=== PATIENT | female | born 1990 | race Two or more races ===

== ENCOUNTER 2023-01-27 16:40 | Emergency (ER) | payer OTHER ==
[~2023-01-27] VITALS: Ht 167.6 cm; Wt 104.3 kg
== END 2023-01-27 20:27 | disposition home or self-care (01) ==
LOC: ER 16:40
DX: S80.871A Other superficial bite, right lower leg, initial encounter (principal); W54.0XXA Bitten by dog, initial encounter; Y93.9 Activity, unspecified; Y92.89 Other specified places as the place of occurrence of the external cause; Y99.9 Unspecified external cause status
CPT/HCPCS: 90471; 90714; J1670

== ENCOUNTER 2023-02-03 12:25 | Emergency (ER) | payer OTHER ==
[~2023-02-03] VITALS: Ht 172.7 cm; Wt 86.2 kg
== END 2023-02-03 13:15 | disposition home or self-care (01) ==
LOC: ER 12:25
DX: Z48.02 Encounter for removal of sutures (principal)

== ENCOUNTER 2023-07-17 14:16 | Emergency (ER) | payer OTHER ==
[~2023-07-17] VITALS: Ht 170.2 cm; Wt 93.0 kg
[2023-07-17 18:34] LABS: HEMATOCRIT 33.2 % (36.0-45.00); MEAN CELL VOLUME 86.3 fL (80.00-100.00); MEAN CORPUSCULAR HEMOGLOBIN 28.6 pg (27.00-32.0); MEAN CORPUSCULAR HGB CONC 33.1 g/dl (32.0-36.0); PLATELET COUNT 308 K/uL (150-450); RED BLOOD COUNT 3.85 M/uL (4.00-6.00); RED CELL DISTRIBUTION WIDTH 12.7 % (11.5-14.5)
[2023-07-17 19:03] LABS: ALBUMIN 2.6 gm/dL (3.4-5.0); BILIRUBIN TOTAL 0.32 mg/dL (0.3-1.2); CREATININE SERUM 0.46 mg/dL (0.55-1.02); GFR 158.44; GLOBULINA 4.8 G/DL (2.4-3.5); POTASSIUM 4.27 mEq/L (3.5-5.1); TOTAL PROTEIN 7.4 gm/dL (6.4-8.2)
[2023-07-17 19:06] LABS: PH,URINE 6.5 (5.0-8.0); URINE APPEARANCE Clear; URINE BILIRRUBIN Negative (NEGATIVE); URINE BLOOD Negative; URINE COLOR Yellow; URINE EPITHELIAL CELLS 22.2 uL (0.0-38.8); URINE GLUCOSE Negative (NEGATIVE); URINE LEUKOCYTE Small; URINE NITRATE Negative; URINE PROTEIN Trace (NEGATIVE); URINE RBC 5.7 uL (0.0-20.8); URINE WBC 72.6 uL (0.0-23.2)
== END 2023-07-17 21:43 | disposition home or self-care (01) ==
LOC: ER 14:16
PROVIDERS: General Practice
DX: O09.90 Supervision of high risk pregnancy, unspecified, unspecified trimester (principal); O23.42 Unspecified infection of urinary tract in pregnancy, second trimester; N39.0 Urinary tract infection, site not specified; Z3A.24 24 weeks gestation of pregnancy; Z20.822 Contact with and (suspected) exposure to COVID-19

== ENCOUNTER 2023-09-23 14:39 | Outpatient (CLI) | payer OTHER ==
[2023-09-23 15:58] LABS: HEMATOCRIT 30.9 % (36.0-45.00); HEMOGLOBIN 10.3 g/dL (12.0-15.00); MEAN CELL VOLUME 84.5 fL (80.00-100.00); MEAN CORPUSCULAR HEMOGLOBIN 28.1 pg (27.00-32.0); MEAN CORPUSCULAR HGB CONC 33.2 g/dl (32.0-36.0); PLATELET COUNT 256 K/uL (150-450); RED BLOOD COUNT 3.65 M/uL (4.00-6.00)
[2023-09-23 16:30] LABS: ALBUMIN 2.4 gm/dL (3.4-5.0); BILIRUBIN TOTAL 0.19 mg/dL (0.3-1.2); CALCIUM 8.5 mg/dL (8.5-10.1); CREATININE SERUM 0.5 mg/dL (0.55-1.02); GFR 143.9; GLOBULINA 3.5 G/DL (2.4-3.5); POTASSIUM 4.35 mEq/L (3.5-5.1); TOTAL PROTEIN 5.9 gm/dL (6.4-8.2)
[2023-09-23 19:53] LABS: RH POSITIVE
[2023-09-24 15:38] LABS: RAPID PLASMA REAGIN NONREACTIVE BY RPR (NONREACTIVE)
== END 2023-09-23 21:56 | disposition left against medical advice (07) ==
LOC: OBS/DEL 14:39
PROVIDERS: Obstetrics & Gynecology; ATTEND Obstetrics & Gynecology
DX: O26.893 Other specified pregnancy related conditions, third trimester (principal); Z3A.34 34 weeks gestation of pregnancy; O35.00X0 Maternal care for (suspected) central nervous system malformation or damage in fetus, unspecified, not applicable or unspecified; O35.3XX0 Maternal care for (suspected) damage to fetus from viral disease in mother, not applicable or unspecified; O36.8199 Decreased fetal movements, unspecified trimester, other fetus

== ENCOUNTER 2023-10-31 12:32 | Inpatient (IN) | payer OTHER ==
[~2023-10-31] VITALS: Ht 170.2 cm; Wt 3.2 kg
[2023-10-31] MEDS ORDERED: AMPICILLIN SODIUM 2,000 MG VIAL ONE (12:42)
[2023-10-31 13:13] LABS: HEMATOCRIT 34.4 % (36.0-45.00); HEMOGLOBIN 11.2 g/dL (12.0-15.00); MEAN CELL VOLUME 81.1 fL (80.00-100.00); MEAN CORPUSCULAR HEMOGLOBIN 26.5 pg (27.00-32.0); MEAN CORPUSCULAR HGB CONC 32.6 g/dl (32.0-36.0); PLATELET COUNT 294 K/uL (150-450); RED BLOOD COUNT 4.24 M/uL (4.00-6.00); RED CELL DISTRIBUTION WIDTH 13.6 % (11.5-14.5)
[2023-10-31] MEDS ORDERED: MAGNESIUM200 MG PO (13:21)
[2023-10-31 13:30] LABS: URINE APPEARANCE Clear; URINE BILIRRUBIN Negative (NEGATIVE); URINE BLOOD Negative; URINE COLOR Yellow; URINE GLUCOSE Negative (NEGATIVE); URINE LEUKOCYTE Trace; URINE NITRATE Negative; URINE PROTEIN 30 (NEGATIVE)
[2023-10-31] MEDS ORDERED: AMPICILLIN SODIUM 2,000 MG VIAL IV ONE (13:30)
[2023-10-31] MEDS ORDERED: RINGERS SOLUTION,LACTATED 1,000 ML IV SCH (13:30)
[2023-10-31 13:34] LABS: URINE BACTERIA 3911.7 uL (0.0-1933); URINE EPITHELIAL CELLS 66.1 uL (0.0-38.8); URINE RBC 13.5 uL (0.0-20.8)
[2023-10-31 13:39] LABS: INR < 0.93; PROTHROMBIN TIME 9.5 SECONDS (9.0-11.5)
[2023-10-31 13:40] LABS: PARTIAL THROMBOPLASTIN TIME 27.5 SECONDS (22.0-34.0)
[2023-10-31 13:45] LABS: ALBUMIN 2.9 gm/dL (3.4-5.0); BILIRUBIN TOTAL 0.31 mg/dL (0.3-1.2); CALCIUM 9.4 mg/dL (8.5-10.1); CREATININE SERUM 0.63 mg/dL (0.55-1.02); GFR 110.22; GLOBULINA 4.3 G/DL (2.4-3.5); POTASSIUM 4.47 mEq/L (3.5-5.1); TOTAL PROTEIN 7.2 gm/dL (6.4-8.2)
[2023-10-31 14:15] LABS: ABG PH 7.327 (7.35-7.45); ABG pCO2 47.6 mmHg (35-45)
[2023-10-31 14:16] LABS: ABG PO2 30.7 mmHg (80-100); BASE EXCESS -2.1 mmol/l; BICARBONATE 24.3 mmol/l (23-25); SaO2 52.5 %; Tco2 25.8 mmol/l; o2 21 %
[2023-10-31] MEDS ORDERED: MEPERIDINE HCL/PF 50 MG/ML VIAL IM PRN (14:30)
[2023-10-31] MEDS ORDERED: OXYTOCIN 1,000 ML IV SCH (14:30)
[2023-10-31] MEDS ORDERED: PROMETHAZINE HCL 50 MG/ML AMPUL IM PRN (14:30)
[2023-10-31] MEDS ORDERED: CEFAZOLIN SODIUM 1,000 MG VIAL ONE (14:38)
[2023-10-31] MEDS ORDERED: CEFAZOLIN SODIUM 1,000 MG VIAL IV ONE (14:45)
[2023-10-31] MEDS ORDERED: OXYTOCIN 10 UNITS/ML VIAL ONE (16:27)
[2023-10-31 16:42] LABS: RH POSITIVE
[2023-10-31 21:27] LABS: HEMATOCRIT 29.8 % (36.0-45.00); HEMOGLOBIN 9.8 g/dL (12.0-15.00); MEAN CELL VOLUME 82.5 fL (80.00-100.00); MEAN CORPUSCULAR HEMOGLOBIN 27.3 pg (27.00-32.0); PLATELET COUNT 254 K/uL (150-450); RED BLOOD COUNT 3.61 M/uL (4.00-6.00); RED CELL DISTRIBUTION WIDTH 13.4 % (11.5-14.5)
[2023-11-01] MEDS ORDERED: IBUprofen 800 MG TABLET PO PRN (06:15)
[2023-11-01] MEDS ORDERED: ACETAMINOPHEN WITH CODEINE 1 UDTAB TABLET PO PRN (06:15)
[2023-11-01] MEDS ORDERED: SIMETHICONE 125 MG CAPSULE PO SCH (08:00)
[2023-11-01] MEDS ORDERED: DOCUSATE SODIUM 100MG CAP PO SCH (09:00)
[2023-11-03] MEDS ORDERED: ACETAMINOPHEN-1 EAC2 PO (11:51)
[2023-11-03] MEDS ORDERED: IBUPROFEN800 MG PO (11:51)
[2023-11-03] MEDS ORDERED: COLACE100 MG PO (11:51)
== END 2023-11-03 12:56 | disposition home or self-care (01) | DRG 788 ==
LOC: OB/GYN 12:32 → LDR 12:32 → O/R 12:32 → OB/GYN 14:58
PROVIDERS: ADMIT Obstetrics & Gynecology; ATTEND Obstetrics & Gynecology
PROC: 4A1HXCZ Monitoring of Products of Conception, Cardiac Rate, External Approach (ICD-10-PCS; 2023-10-31)
PROC: 10D00Z1 Extraction of Products of Conception, Low, Open Approach (ICD-10-PCS; principal; 2023-10-31 13:00)
DX: O36.8130 Decreased fetal movements, third trimester, not applicable or unspecified (principal); O36.8330 Maternal care for abnormalities of the fetal heart rate or rhythm, third trimester, not applicable or unspecified; Z3A.40 40 weeks gestation of pregnancy; Z37.0 Single live birth; Z20.822 Contact with and (suspected) exposure to COVID-19